=== PATIENT | female | born 1985 | race Caucasian/White ===

== ENCOUNTER 2018-09-29 12:50 | Emergency (ER) | payer OTHER ==
[2018-09-29 13:04] VITALS: RESP 18; TEMP 99.2
[2018-09-29] MEDS ORDERED: Atrop/Hyosc/Scopal/PB Elixir (120 ml) PO STA (13:11)
[2018-09-29] MEDS ORDERED: Sodium Chloride 0.9% 1,000 ML IV STA (13:11)
[2018-09-29] MEDS ORDERED: Alum-Mag Hydrox-Simethicone Susp (30 mL) PO STA (13:11)
--- NOTE | 2018-09-29 13:22 | ED PDOC ---
Arrival/HPI - General Chief Complaint: GI Problem Historian: Patient - History of Present Illness Narrative History of Present Illness (Text): 09/29/18 13:21 33 year old female, whose past medical history includes gastritis, H-Pylori(not treated), and history of ulcers, presents to the emergency department complaining of a "gastritis attack" that began 2 days ago. Patient reports she went out drinking and smoking hookah 2 days ago when she experienced abdominal pain. Patient reports she then ate [employer] yesterday and began experiencing multiple episodes of vomiting. Patient reports she has experienced similar symptoms in the past and denies taking any medication for the pain. Patient reports she has not seen her GI for 5 years and has not seen her PMD for 2 years. She reports her LMP was 3 days ago. Patient is an occasional smoker. Patient denies any fever, chest pain, shortness of breath, diarrhea, back pain, neck pain, headache, dizziness, or any other complaints. PMD: Dr. Snow Time/Duration: Other (3 days) Symptom Onset: Gradual Symptom Course: Unchanged Quality: Burning Severity Level: 5 Activities at Onset: Rest, Eating Context: Home Past Medical History - Provider Review Nursing Documentation Reviewed: Yes - Travel History Have you recently traveled outside [place] w/in the past 3 mons?: No - Reproductive Currently : No - Gastrointestinal Hx Gastrointestinal Disorders: Yes (h. pylori) Hx Gastritis: Yes - Psychiatric Hx Substance Use: Yes (hookah) - Surgical History Other/Comment: L ACL/miniscus repair - Anesthesia Hx Anesthesia: Yes Hx Anesthesia Reactions: No Hx Malignant Hyperthermia: No Family/Social History - Physician Review Nursing Documentation Reviewed: Yes Family/Social History: No Known Family HX Smoking Status: Never Smoked Hx Alcohol Use: Yes Frequency of alcohol use: Socially Hx Substance Use: Yes (hookah) Allergies/Home Meds Allergies/Adverse Reactions: Allergies cole Allergy (Verified 09/29/18 12:59) URTICARIA nut - unspecified Allergy (Verified 09/29/18 12:59) URTICARIA Penicillins Allergy (Verified 09/29/18 12:59) URTICARIA Review of Systems - Physician Review All systems were reviewed & negative as marked: Yes - Review of Systems Constitutional: absent: Fevers Respiratory: absent: SOB Cardiovascular: absent: Chest Pain Gastrointestinal: Abdominal Pain, Nausea, Vomiting. absent: Diarrhea Genitourinary Female: absent: Dysuria, Frequency, Hematuria Musculoskeletal: absent: Back Pain, Neck Pain Neurological: absent: Headache, Dizziness Physical Exam Vital Signs Reviewed: Yes Vital Signs Temp Pulse Resp BP Pulse Ox 09/29/18 12:51 99.2 F 106 H 18 113/74 96 Temperature: Afebrile Blood Pressure: Normal Pulse: Tachycardic Respiratory Rate: Normal Appearance: Positive for: Well-Appearing, Non-Toxic, Comfortable Pain Distress: None Mental Status: Positive for: Alert and Oriented X 3 - Systems Exam Respiratory/Chest: Present: Clear to Auscultation. No: Wheezes, Rales, Rhonchi Cardiovascular: Present: Regular Rate and Rhythm, Normal S1, S2. No: Murmurs, Rub, Gallop Abdomen: Present: Tenderness (LLQ). No: Distention Upper Extremity: Present: Normal Inspection. No: Cyanosis, Edema Lower Extremity: Present: Normal Inspection. No: Edema Neurological: Present: GCS=15, Speech Normal Psychiatric: Present: Alert, Oriented x 3, Normal Insight, Normal Concentration Medical Decision Making ED Course and Treatment: 09/29/18 13:21 Impression: 33 year old female presents complaining of a "gastritis attack" complaining of nausea, vomiting, and abdominal pain that began 2 days ago. Differential Diagnosis included but are not limited to: Plan: -- Labs -- Benadryl -- Elixir --Maalox Plus 30ml --Pepcid --Reglan --IV Fluids, -- POC Urine test -- Abdomen complete US -- Reassess and disposition Prior Visits: Notes and results from previous visits were reviewed. Progress Notes: 09/29/18 16:55 Labs reviewed with no evidence of elevated bilirubin or lipase. Electrolytes WNL. Patient has no somatic complaints at this time. Pending US read. 09/29/18 US shows no evidence of inflammation or evidence of acute pathology. Patient updated on findings and will follow up with her GI specialist and PCP. Questions answered and follow up provided. She is stable for discharge. - Lab Interpretations Lab Results: 09/29/18 13:00 09/29/18 13:00 Lab Results 09/29/18 13:00: Sodium 139, Potassium 3.7, Chloride 107, Carbon Dioxide 23, Anion Gap 13, BUN 17, Creatinine 0.7, Est GFR ( Amer) > 60, Est GFR (Non- Af Amer) > 60, Random Glucose 118 H, Calcium 8.9, Total Bilirubin 0.6, AST 27, ALT 13, Alkaline Phosphatase 65, Total Protein 8.7 H, Albumin 4.8, Globulin 3.9, Albumin/Globulin Ratio 1.2, Lipase 126 09/29/18 13:00: WBC 5.9, RBC 4.13, Hgb 12.1, Hct 36.7, MCV 88.9, MCH 29.3, MCHC 33.0, RDW 12.9, Plt Count 271, MPV 9.8, Neut % (Auto) 88.4 H, Lymph % (Auto) 6.8 L, [place] % (Auto) 3.6, Eos % (Auto) 1.2 L, Baso % (Auto) 0.0, Lymph # (Auto) 0.4 L, [place] # (Auto) 0.2, Eos # (Auto) 0.1, Baso # (Auto) 0.00, Absolute Neuts (auto) 5.18 I have reviewed the lab results: Yes - Medication Orders Current Medication Orders: Sodium Chloride (Sodium Chloride 0.9%) 1,000 mls @ 999 mls/hr IV .Q1H1M STA Stop: 09/29/18 14:11 Discontinued Medications Al Hydrox/Mg Hydrox/Simethicone (Maalox Plus 30 Ml) 30 ml PO STAT STA Stop: 09/29/18 13:12 Belladonna/Phenobarbital ( Elixir) 5 ml PO STAT STA Stop: 09/29/18 13:12 Famotidine (Pepcid) 20 mg IVP STAT STA Stop: 09/29/18 13:11 Metoclopramide HCl (Reglan) 10 mg IVP STAT STA Stop: 09/29/18 13:11 - Scribe Statement The provider has reviewed the documentation as recorded by the Dot Jones Provider Premibe Attestation: All medical record entries made by the Premibyudi were at my direction and personally dictated by me. I have reviewed the chart and agree that the record accurately reflects my personal performance of the history, physical exam, medical decision making, and the department course for this patient. I have also personally directed, reviewed, and agree with the discharge instructions and disposition. Disposition/Present on Arrival - Present on Arrival Any Indicators Present on Arrival: No History of DVT/PE: No History of Uncontrolled Diabetes: No Urinary Catheter: No History of Decub. Ulcer: No History Surgical Site Infection Following: None - Disposition Have Diagnosis and Disposition been Completed?: Yes Diagnosis: Gastritis Disposition: HOME/ ROUTINE Disposition Time: 17:29 Patient Plan: Discharge Condition: IMPROVED Discharge Instructions (ExitCare): Gastritis (DC) Print Language: LITHUANIAN Additional Instructions: All medical record entries made by the Scribe were at my direction and personally dictated by me. I have reviewed the chart and agree that the record accurately reflects my personal performance of the history, physical exam, medical decision making, and the department course for this patient. I have also personally directed, reviewed, and agree with the discharge instructions and disposition. Follow up with your GI specialist in the upcoming month Prescriptions: Famotidine [Pepcid] 40 mg PO DAILY #10 tablet Metoclopramide HCl [Reglan] 10 mg PO PRN PRN #10 tablet PRN Reason: Nausea/Vomiting Referrals: Rei Snow MD [Primary Care Provider] - Follow up with primary Sabas López MD [Staff Provider] - Follow up with primary Alex Ponce MD [Medical Doctor] - Follow up with primary Forms: [employer] (Slovenian), WORK NOTE
[2018-09-29 13:36] LABS: EOS # 0.1 (0.0-0.7); EOS % 1.2 % (1.5-5.0); HEMOGLOBIN 12.1 g/dL (12.0-16.0); LYMPH # 0.4 (1.2-3.4); LYMPH % 6.8 % (22.0-35.0); MEAN CELL VOLUME 88.9 fl (80.0-105.0); MEAN CORPUSCULAR HEMOGLOBIN 29.3 pg (25.0-35.0); MEAN PLATELET VOLUME 9.8 fl (7.0-11.0); MONO # 0.2 (0.1-0.6); MONO % 3.6 % (1.0-6.0); RBC 4.13 10^6/uL (3.5-6.1); RED CELL DISTRIBUTION WIDTH 12.9 % (11.5-14.5); WHITE BLOOD COUNT 5.9 10^3/uL (4.5-11.0)
[2018-09-29 13:46] LABS: ALB/GLOB RATIO 1.2 (1.1-1.8); ALBUMIN 4.8 g/dL (3.0-4.8); ALT/SGPT 13 U/L (7-56); AST/SGOT 27 U/L (14-36); BLOOD UREA NITROGEN 17 mg/dL (7-21); CALCIUM 8.9 mg/dL (8.4-10.5); GFR NON-AFRICAN AMERICAN > 60; LIPASE 126 U/L (23-300)
[2018-09-29] MEDS ORDERED: DiphenhydrAMINE 50 mg/ml Inj IVP STA (13:55)
[2018-09-29 17:30] VITALS: BP 132/78; PULSE 72; O2SAT 99
--- NOTE | 2018-09-29 17:40 | US ---
Date of service: 09/29/2018 HISTORY: LLQ pain w/ h/o h pylori COMPARISON: None. TECHNIQUE: Sonographic evaluation of the abdomen. FINDINGS: LIVER: Measures 14.0 cm. Increased hepatic echotexture likely due to fatty infiltration however other infiltrative hepatocellular disease process not excluded.. No mass. No intrahepatic bile duct dilatation. GALLBLADDER: Unremarkable. No gallstones. No pericholecystic fluid collections or sonographic Quintero sign COMMON BILE DUCT: Measures 3.9 mm. No stones. No dilatation. PANCREAS: Unremarkable as visualized. No mass. No ductal dilatation. RIGHT KIDNEY: Measures 11.0 x 3.9 x 5.6cm. Normal echogenicity. No calculus, mass, or hydronephrosis. LEFT KIDNEY: Measures 10.0 x 4.9 x 5.3cm. Normal echogenicity. No calculus, mass, or hydronephrosis. SPLEEN: Normal in size and contour. No mass. AORTA: No aneurysmal dilatation. IVC: Unremarkable. OTHER FINDINGS: None. IMPRESSION: Findings suggest mild fatty infiltration however other infiltrative hepatocellular disease process not excluded
== END 2018-09-29 17:29 | disposition home or self-care (01) ==
LOC: ED 12:50
DX: K29.70 Gastritis, unspecified, without bleeding (principal)
CPT/HCPCS: 76700; 80053; 81025; 83690; 85025; 96361; 96374; 96375; 99284; J2765; J7030